=== PATIENT | male | born 2000 | race Caucasian/White ===

== ENCOUNTER 2025-02-20 01:29 | Emergency (ER) | payer OTHER ==
[~2025-02-20] VITALS: Ht 182.9 cm; Wt 88.6 kg
[2025-02-20] MEDS: NS (Normal Saline) 0.9% 1,000 ML IV ONE ×2 (03:35→05:11)
[2025-02-20] MEDS: KETOROLAC 30 MG/ML 1 ML VIAL IV ONE (03:35)
[2025-02-20 03:51] LABS: BASO # 0.1 10^3/uL (0.0-0.2); BASO % 0.7 % (0.0-1.0); EOS # 0.2 10^3/uL (0.0-0.5); EOS % 1.4 % (0.0-3.0); LYMPH # 2.9 10^3/uL (1.5-5.0); LYMPH % 23.4 % (24.0-44.0); MONO # 1.6 10^3/uL (0.0-0.8); MONO % 13.0 % (2.0-8.0); NEUTROPHILS # 7.6 10^3/uL (1.5-8.5); NEUTROPHILS % 61.2 % (36.0-66.0); PLATELET COUNT, AUTOMATED 260 10^3/uL (150-450)
[2025-02-20] MEDS ORDERED: ISOVUE-370 76% 100 ML VIAL As Ordered ONE (03:56)
[2025-02-20 04:01] LABS: C REACTIVE PROTEIN QUANTITATIV < 0.50 MG/DL (<1.0)
[2025-02-20 04:09] LABS: CALCIUM LEVEL 9.0 MG/DL (8.5-10.1); CARBON DIOXIDE LEVEL 28 MMOL/L (20-31); CHLORIDE LEVEL 103 MMOL/L (98-107); CREATININE FOR GFR 1.05 MG/DL (0.70-1.30); GLOMERULAR FILTRATION RATE > 90.0 (>60); MAGNESIUM LEVEL 1.8 MG/DL (1.8-2.4); POTASSIUM SERUM 4.1 MMOL/L (3.5-5.1); SODIUM LEVEL 140 MMOL/L (136-145)
[2025-02-20 04:28] LABS: MONO SCRN NEGATIVE (NEGATIVE)
[2025-02-20] MEDS ORDERED: DEXA6TAB PO (05:53)
[2025-02-20 06:00] VITALS: BP 131/66; TEMP 97.6; O2SAT 99
== END 2025-02-20 06:25 | disposition home or self-care (01) ==
LOC: M ED 01:29
DX: J35.1 Hypertrophy of tonsils (principal); R55 Syncope and collapse
CPT/HCPCS: 70491; 71275; 80047; 80048; 83735; 84145; 84443; 84484; 85025; 86140; 86308; 87486; 87581; 87633; 87798; 87880; 93005; 96361; 96374; 96375; 99284; J1100; J1885; Q9967